=== PATIENT | male | born 1975 | race African-American/Black ===

== ENCOUNTER 2024-11-17 10:13 | Emergency (ER) | payer MEDICAID ==
[~2024-11-17] VITALS: Ht 182.9 cm; Wt 75.0 kg
[~2024-11-17 10:13] MED LIST: RISO02 PO
[2024-11-17 10:32] VITALS: BP 101/58; PULSE 90; RESP 18; TEMP 37.1; O2SAT 94
[2024-11-18] MEDS ORDERED: IBUP-2029 MT (00:18)
[2024-11-20] MEDS ORDERED: LIDO-53 TP (03:04)
== END 2024-11-17 14:29 | disposition home or self-care (01) ==
LOC: ER 10:13
DX: Z76.5 Malingerer [conscious simulation] (principal); J45.909 Unspecified asthma, uncomplicated; F31.9 Bipolar disorder, unspecified; Z79.899 Other long term (current) drug therapy; Z88.5 Allergy status to narcotic agent
CPT/HCPCS: 99283

== ENCOUNTER 2024-11-17 19:51 | Emergency (ER) | payer MEDICAID ==
[~2024-11-17] VITALS: Ht 188 cm; Wt 76.7 kg
[2024-11-17 19:54] VITALS: O2SAT 100
[2024-11-17] MEDS: IBUPROFEN 600MG TABLET PO ONE (22:38)
[2024-11-18] MEDS ORDERED: IBUP-2029 MT (00:18)
[2024-11-18 00:47] VITALS: BP 132/87; PULSE 90; RESP 14; TEMP 36.9; O2SAT 100
== END 2024-11-18 00:48 | disposition home or self-care (01) ==
LOC: ER 19:51
DX: M79.10 Myalgia, unspecified site (principal); J45.909 Unspecified asthma, uncomplicated; Z79.899 Other long term (current) drug therapy; Z88.5 Allergy status to narcotic agent
CPT/HCPCS: 71045; 73630; 99285

== ENCOUNTER 2024-11-19 20:08 | Emergency (ER) | payer MEDICAID ==
[~2024-11-19] VITALS: Ht 182.9 cm; Wt 69.0 kg
[~2024-11-19 20:08] MED LIST changes: +IBUP-2029 MT
[2024-11-19 20:14] VITALS: BP 134/76; PULSE 110; RESP 18; TEMP 36.8; O2SAT 96
[2024-11-19 21:32] LABS: BASOPHILS % 1.0 % (0.0-2.0); EOSINOPHILS % 1.3 % (0.0-5.0); HEMATOCRIT. 37.9 % (42.0-52.0); HEMOGLOBIN. 12.9 g/dL (14.0-18.0); LYMPHOCYTES % 48.4 % (20.0-50.0); MEAN PLATELET VOLUME 7.4 fl (7.4-10.4); MONOCYTES % 10.1 % (2.0-8.0); NEUTROPHILS % 39.2 % (40.0-76.0); PLATELET 237 x1000/uL (130-400); RED BLOOD CELL COUNT 3.53 mill/uL (4.7-6.1); RED CELL DISTRIBUTION WIDTH 13.8 % (11.6-14.6)
[2024-11-19 21:50] LABS: CREATININE 1.0 mg/dL (0.6-1.3); UREA NITROGEN BLOOD 19 mg/dL (9-23)
[2024-11-19 22:03] LABS: ETHANOL BLOOD 382 mg/dL (<10)
[2024-11-20] MEDS: CHLORDIAZEPOXIDE 25MG CAPSULE PO ONE (00:30)
[2024-11-20] MEDS ORDERED: LIDO-53 TP ×2 (03:04→21:55)
[2024-11-20] MEDS ORDERED: NAPR-1176 MT (03:04)
== END 2024-11-20 00:33 | disposition home or self-care (01) ==
LOC: ER 20:08
DX: F10.229 Alcohol dependence with intoxication, unspecified (principal); J45.909 Unspecified asthma, uncomplicated; F31.9 Bipolar disorder, unspecified; Z88.5 Allergy status to narcotic agent; Y90.9 Presence of alcohol in blood, level not specified
CPT/HCPCS: 36415; 80048; 80320; 85025; 99291; G0480

== ENCOUNTER 2024-11-20 01:06 | Emergency (ER) | payer MEDICAID ==
[~2024-11-20] VITALS: Ht 188 cm; Wt 72.0 kg
[2024-11-20 01:15] VITALS: TEMP 36.7; O2SAT 99
[2024-11-20] MEDS: KETOROLAC 15MG/ML VIAL IM ONE (02:35)
[2024-11-20] MEDS ORDERED: LIDO-53 TP ×2 (03:04→21:55)
[2024-11-20] MEDS ORDERED: NAPR-1176 MT (03:04)
[2024-11-20 03:29] VITALS: BP 104/73; PULSE 75; RESP 16; O2SAT 97
== END 2024-11-20 03:33 | disposition home or self-care (01) ==
LOC: ER 01:22
DX: M25.551 Pain in right hip (principal); M25.552 Pain in left hip; F31.9 Bipolar disorder, unspecified; J45.909 Unspecified asthma, uncomplicated; Z79.1 Long term (current) use of non-steroidal anti-inflammatories (NSAID); Z88.5 Allergy status to narcotic agent; Z79.899 Other long term (current) drug therapy
CPT/HCPCS: 96372; 99283; J1885; Z7610

== ENCOUNTER 2024-11-20 18:54 | Emergency (ER) | payer MEDICAID ==
[~2024-11-20] VITALS: Ht 190.5 cm; Wt 73.0 kg
[~2024-11-20 18:54] MED LIST changes: +IBUP-1455 MT; -IBUP-2029 MT; +LIDO-53 TP; +NAPR-1176 MT
[2024-11-20 18:58] VITALS: O2SAT 96
[2024-11-20] MEDS ORDERED: LIDO-53 TP (21:55)
[2024-11-20 22:28] VITALS: BP 103/72; PULSE 84; RESP 18; TEMP 37.1; O2SAT 98
== END 2024-11-20 22:33 | disposition home or self-care (01) ==
LOC: ER 18:54
DX: M25.562 Pain in left knee (principal); M25.561 Pain in right knee; Z79.1 Long term (current) use of non-steroidal anti-inflammatories (NSAID); Z59.00 Homelessness unspecified; I10 Essential (primary) hypertension; Z98.890 Other specified postprocedural states; Z79.899 Other long term (current) drug therapy; Z88.5 Allergy status to narcotic agent
CPT/HCPCS: 29505; 73560; 99283